=== PATIENT | male | born 1980 | race Hispanic/Latino ===

== ENCOUNTER 2018-12-20 11:12 | Emergency (ER) | payer SELFPAY ==
[2018-12-20 11:37] VITALS: BP 142/89
--- NOTE | 2018-12-20 11:40 | Emergency Department Report ---
Chief Complaint: Extremity Problem,Nontraumatic Stated Complaint: LEFT ARM PAIN Time Seen by Provider: 12/20/18 11:35 - HPI History of Present Illness: This is a 38 y.o. male that presents with pain and redness to left anterior forearm. He accidentally scraped his arm with a piece of wood last week. - ROS Review of Systems: Bruising and pain to anterior left forearm. - Exam Vital Signs: Vital Signs 12/20/18 11:35 Temperature 98.2 F Pulse Rate 86 Respiratory 18 Rate Blood Pressure 142/89 O2 Sat by Pulse 99 Oximetry MSE screening note: Focused history and physical exam performed. Due to findings the following was ordered: XR forearm ACC for further evaluation. ED Disposition for MSE Condition: Stable
--- NOTE | 2018-12-20 12:21 | XRay Report ---
LEFT FOREARM: History: Swelling, pain AP and lateral views of the forearm demonstrate normal mineralization and contours for this patient's age. No destructive changes are noted and the adjacent soft tissues are normal. IMPRESSION: Normal left forearm.
--- NOTE | 2018-12-20 14:00 | Emergency Department Report ---
ED Extremity Problem HPI - General Chief complaint: Extremity Problem,Nontraumatic Stated complaint: LEFT ARM PAIN Time Seen by Provider: 12/20/18 11:35 Source: patient Mode of arrival: Ambulatory Limitations: No Limitations - History of Present Illness Initial comments: This is a 38-year-old old female who presents to ED complaining of left upper arm redness for the past 3 days. Patient states that he was working with some wood that he thinks with accidentally scratched the side of his arm. Patient states days later he noticed some redness and swelling since the left upper arm. He denies fever assess chills shortness of breath. Patient states that he had a tetanus booster 2 years ago -: Gradual Location: left, upper extremity History of Same: No Radiation: none Severity scale (0 -10): 7 - Related Data Previous Rx's Medication Instructions Recorded Last Taken Type Cephalexin [Keflex] 500 mg PO BID #10 capsule 12/20/18 Unknown Rx Clindamycin [Clindamycin CAP] 300 mg PO BID #14 cap 12/20/18 Unknown Rx Ibuprofen [Motrin] 800 mg PO Q8HR #30 tablet 12/20/18 Unknown Rx Allergies Allergy/AdvReac Type Severity Reaction Status Date / Time No Known Allergies Allergy Unverified 12/20/18 11:13 ED Review of Systems ROS: Stated complaint: LEFT ARM PAIN Other details as noted in HPI Comment: All other systems reviewed and negative ED Past Medical Hx - Past Medical History Previous Medical History?: Yes - Surgical History Past Surgical History?: No - Social History Smoking Status: Current Every Day Smoker Substance Use Type: None - Medications Home Medications: Home Medications Medication Instructions Recorded Confirmed Last Taken Type Cephalexin [Keflex] 500 mg PO BID #10 capsule 12/20/18 Unknown Rx Clindamycin [Clindamycin CAP] 300 mg PO BID #14 cap 12/20/18 Unknown Rx Ibuprofen [Motrin] 800 mg PO Q8HR #30 tablet 12/20/18 Unknown Rx ED Physical Exam - General Limitations: No Limitations General appearance: alert, in no apparent distress - Head Head exam: Present: atraumatic, normocephalic - Eye Eye exam: Present: normal appearance - ENT ENT exam: Present: mucous membranes moist - Neck Neck exam: Present: normal inspection - Respiratory Respiratory exam: Present: normal lung sounds bilaterally. Absent: respiratory distress - Cardiovascular Cardiovascular Exam: Present: regular rate, normal rhythm. Absent: systolic murmur, diastolic murmur, rubs, gallop - GI/Abdominal GI/Abdominal exam: Present: soft, normal bowel sounds - Rectal Rectal exam: Present: deferred - Extremities Exam Extremities exam: Present: normal inspection, full ROM, normal capillary refill - Expanded Upper Extremity Exam Left Shoulder Exam: Present: normal inspection, full ROM. Absent: tenderness, swelling Upper Arm exam: Present: normal inspection, full ROM, erythema (to medial aspect of arm, 6-7 cm in diameter). Absent: tenderness, swelling, dislocation Elbow exam: Present: normal inspection, full ROM. Absent: tenderness, swelling Forearm Wrist exam: Present: normal inspection, full ROM. Absent: tenderness Hand Wrist exam: Present: normal inspection, full ROM. Absent: tenderness, swelling - Back Exam Back exam: Present: normal inspection - Neurological Exam Neurological exam: Present: alert, oriented X3 - Psychiatric Psychiatric exam: Present: normal affect, normal mood - Skin Skin exam: Present: warm, dry, intact, normal color. Absent: rash ED Course Vital Signs 12/20/18 11:35 Temperature 98.2 F Pulse Rate 86 Respiratory 18 Rate Blood Pressure 142/89 O2 Sat by Pulse 99 Oximetry ED Medical Decision Making - Medical Decision Making 38-year-old male presents to be saline and is most likely from infection of the wood abrasion puncture wound. Patient received clindamycin ED Discussed antibiotic therapy next week. Discussed follow-up with primary care physician in 3-5 days. Vital signs are normal patient is in no acute distress Critical care attestation.: If time is entered above; I have spent that time in minutes in the direct care of this critically ill patient, excluding procedure time. ED Disposition Clinical Impression: Cellulitis of arm, left Disposition: DC-01 TO HOME OR SELFCARE Is pt being admited?: No Does the pt Need Aspirin: No Condition: Stable Instructions: Cellulitis (ED) Additional Instructions: Make sure to follow up with the primary care physician as discussed. Take all your medications as you've been prescribed. If you have any worsening symptoms or develop new symptoms please return to ED immediately. Prescriptions: Clindamycin [Clindamycin CAP] 300 mg PO BID #14 cap Cephalexin [Keflex] 500 mg PO BID #10 capsule Ibuprofen [Motrin] 800 mg PO Q8HR #30 tablet Referrals: CORTEZ WONGHALE MD TREY [Primary Care Provider] - 3-5 Days [facility] [Outside] - 3-5 Days Forms: Work/School Release Form(ED), Accompanied Note Time of Disposition: 14:35
[2018-12-20] MEDS ORDERED: CLEOCIN IM ONE (14:02)
== END 2018-12-20 14:45 | disposition home or self-care (01) ==
LOC: ED 11:12
DX: L03.114 Cellulitis of left upper limb (principal); F17.200 Nicotine dependence, unspecified, uncomplicated
CPT/HCPCS: 96372; 99283

== ENCOUNTER 2020-02-23 04:00 | Emergency (ER) | payer SELFPAY ==
[2020-02-23 04:22] VITALS: BP 125/78
--- NOTE | 2020-02-23 04:25 | Emergency Department Report ---
ED Seizure HPI - General Chief Complaint: Seizure Stated Complaint: SEIZURE Time Seen by Provider: 02/23/20 04:19 Source: patient, police, EMS Mode of arrival: Stretcher Limitations: No Limitations - History of Present Illness Initial Comments: Patient is 39 years old male with history of seizure on Vimpat. Patient brought to the emergency room by mounted police officer. Officer stated that patient started having seizures after has been arrested this morning. Patient is alert, oriented x3 no acute distress. Patient stated that he does not have his medic ation with him but last time he took his medicine was yesterday morning. Patient denied any injury. No fever, chills, neck pain, weakness numbness or tingling sensation. MD Complaint: seizure -: Sudden Description of Episode: loss of consciousness, tonic-clonic movement Witnessed:: Yes Trauma: No Seizure History: known seizure disorder Treatments Prior to Arrival: none - Related Data Previous Rx's Medication Instructions Recorded Last Taken Type Cephalexin [Keflex] 500 mg PO BID #10 capsule 12/20/18 Unknown Rx Clindamycin [Clindamycin CAP] 300 mg PO BID #14 cap 12/20/18 Unknown Rx Ibuprofen [Motrin] 800 mg PO Q8HR #30 tablet 12/20/18 Unknown Rx Lacosamide [Vimpat] 150 mg PO BID #60 tablet 02/23/20 Unknown Rx Allergies Allergy/AdvReac Type Severity Reaction Status Date / Time No Known Allergies Allergy Unverified 12/20/18 11:13 ED Review of Systems ROS: Stated complaint: SEIZURE Other details as noted in HPI Comment: All other systems reviewed and negative Constitutional: denies: chills, fever Respiratory: denies: cough, shortness of breath Cardiovascular: denies: chest pain Gastrointestinal: denies: abdominal pain ED Past Medical Hx - Social History Smoking Status: Current Every Day Smoker Substance Use Type: Alcohol - Medications Home Medications: Home Medications Medication Instructions Recorded Confirmed Last Taken Type Cephalexin [Keflex] 500 mg PO BID #10 capsule 12/20/18 Unknown Rx Clindamycin [Clindamycin CAP] 300 mg PO BID #14 cap 12/20/18 Unknown Rx Ibuprofen [Motrin] 800 mg PO Q8HR #30 tablet 12/20/18 Unknown Rx Lacosamide [Vimpat] 150 mg PO BID #60 tablet 02/23/20 Unknown Rx ED Physical Exam - General Limitations: No Limitations General appearance: alert, in no apparent distress - Head Head exam: Present: atraumatic, normocephalic, normal inspection - Eye Eye exam: Present: normal appearance - ENT ENT exam: Present: normal exam, normal orophraynx, mucous membranes moist - Neck Neck exam: Present: normal inspection, full ROM. Absent: tenderness, meningismus - Respiratory Respiratory exam: Present: normal lung sounds bilaterally - Cardiovascular Cardiovascular Exam: Present: regular rate, normal rhythm, normal heart sounds - GI/Abdominal GI/Abdominal exam: Present: soft, normal bowel sounds. Absent: distended, tenderness, guarding, rebound, rigid, organomegaly, mass, bruit, pulsatile mass, hernia - Extremities Exam Extremities exam: Present: normal inspection, full ROM, normal capillary refill - Back Exam Back exam: Present: normal inspection, full ROM. Absent: CVA tenderness (R), CVA tenderness (L) - Neurological Exam Neurological exam: Present: alert, oriented X3, CN II-XII intact - Psychiatric Psychiatric exam: Present: normal mood - Skin Skin exam: Present: warm, intact, normal color ED Course Vital Signs 02/23/20 04:16 Temperature 97.9 F Pulse Rate 106 H Respiratory 16 Rate Blood Pressure 125/78 O2 Sat by Pulse 97 Oximetry ED Medical Decision Making - Lab Data Result diagrams: 02/23/20 04:29 02/23/20 04:29 - Medical Decision Making Patient is 39 years old male with history of seizure on Vimpat. Patient brought to the emergency room by mounted police officer. Officer stated that patient started having seizures after has been arrested this morning. Patient is alert, oriented x3 no acute distress. Patient stated that he does not have his medication with him but last time he took his medicine was yesterday morning. Patient denied any injury. No fever, chills, neck pain, weakness numbness or tingling sensation. Patient received Vimpat 200 mg IV x1. Labs reviewed and showed elevated white blood cells and this is most likely secondary to seizure. Patient with no clinical evidence of infection. Patient given a prescription for Vimpat and advised to follow-up with a neurologist in the next 2 to 3 days. Critical care attestation.: If time is entered above; I have spent that time in minutes in the direct care of this critically ill patient, excluding procedure time. ED Disposition Clinical Impression: Seizure Disposition: DC/[place]-[address]/LAW ENFORCEMENT Is pt being admited?: No Condition: Stable Instructions: Recurrent Seizures Adult (ED) Prescriptions: Lacosamide [Vimpat] 150 mg PO BID #60 tablet Referrals: PRIMARY CARE, [Primary Care Provider] - 3-5 Days
[2020-02-23] MEDS ORDERED: LACOSAMIDE 200 MG in SODIUM CHLORIDE 0.9% 100 ML IV ONE (04:45)
[2020-02-23 04:49] LABS: Basophils # (Auto) 0.1 K/mm3 (0.0-0.1); Basophils % (Auto) 0.4 % (0.0-1.8); Eosinophils # (Auto) 0.1 K/mm3 (0.0-0.4); Eosinophils % (Auto) 0.3 % (0.0-4.3); Hematocrit 46.4 % (35.5-45.6); Hemoglobin 16.2 gm/dl (11.8-15.2); Lymphocytes % (Auto) 10.6 % (13.4-35.0); Mean Corpuscular HGB Conc 35 % (32-34); Mean Corpuscular Volume 89 fl (84-94); Monocytes % (Auto) 5.5 % (0.0-7.3); Platelet Count 160 K/mm3 (140-440); Red Blood Count 5.24 M/mm3 (3.65-5.03); Red Cell Distribution Width 12.9 % (13.2-15.2)
[2020-02-23 05:05] LABS: BUN/Creatinine Ratio 20; Blood Urea Nitrogen 16 mg/dL (9-20); Calcium 9.8 mg/dL (8.4-10.2); Hemolysis Index 6
[2020-02-23 05:27] LABS: Bilirubin,Urine NEG (Negative); Blood,Urine SM (Negative); Color,Urine Yellow (Yellow); Mucus,Urine FEW /HPF; Protein,Urine <15 mg/dL mg/dL (Negative); Urobilinogen,Urine < 2.0 mg/dL (<2.0)
== END 2020-02-23 05:40 ==
LOC: ED 04:00
DX: R56.9 Unspecified convulsions (principal); F17.200 Nicotine dependence, unspecified, uncomplicated
CPT/HCPCS: 36415; 80048; 81001; 85025; 99283; C9254

== ENCOUNTER 2020-05-16 10:14 | Emergency (ER) | payer MEDICARE ==
[2020-05-16] MEDS ORDERED: SODIUM CHLORIDE 0.9% 1000 ML 1,000 ML IV ONE (10:55)
[2020-05-16] MEDS ORDERED: ONDANSETRON 4 MG/2 ML INJ IV ONE (10:55)
[2020-05-16] MEDS ORDERED: fentaNYL 100 MCG/2 ML INJ IV ONE ×3 (10:55→13:27)
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
[2020-05-16 11:27] LABS: Basophils % (Auto) 0.2 % (0.0-1.8); Eosinophils # (Auto) 0.1 K/mm3 (0.0-0.4); Eosinophils % (Auto) 0.6 % (0.0-4.3); Hematocrit 47.2 % (35.5-45.6); Hemoglobin 16.3 gm/dl (11.8-15.2); Lymphocytes # (Auto) 1.3 K/mm3 (1.2-5.4); Lymphocytes % (Auto) 8.1 % (13.4-35.0); Mean Corpuscular HGB Conc 35 % (32-34); Mean Corpuscular Volume 92 fl (84-94); Monocytes # (Auto) 1.1 K/mm3 (0.0-0.8); Monocytes % (Auto) 7.1 % (0.0-7.3); Platelet Count 138 K/mm3 (140-440); Red Blood Count 5.11 M/mm3 (3.65-5.03); Red Cell Distribution Width 14.1 % (13.2-15.2)
[2020-05-16 11:39] LABS: INR 1.09 (0.87-1.13)
[2020-05-16 11:40] LABS: Partial Thromboplastin Time 28.9 Sec. (24.2-36.6)
[2020-05-16 11:51] LABS: Creatine Kinase MB 4.8 ng/mL (0.0-4.0)
[2020-05-16 11:53] LABS: Alanine Aminotransferase 24 units/L (7-56); Albumin 4.6 g/dL (3.9-5); BUN/Creatinine Ratio 23; Blood Urea Nitrogen 16 mg/dL (9-20); Calcium 9.3 mg/dL (8.4-10.2); Hemolysis Index 15
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
[2020-05-16 15:35] VITALS: BP 114/64
== END 2020-05-16 15:20 | disposition home or self-care (01) ==
LOC: ED 10:14
DX: S16.1XXA Strain of muscle, fascia and tendon at neck level, initial encounter (principal); S39.012A Strain of muscle, fascia and tendon of lower back, initial encounter; S20.211A Contusion of right front wall of thorax, initial encounter; S30.810A Abrasion of lower back and pelvis, initial encounter; S40.212A Abrasion of left shoulder, initial encounter; S40.211A Abrasion of right shoulder, initial encounter; Z86.69 Personal history of other diseases of the nervous system and sense organs; Z79.899 Other long term (current) drug therapy; V43.52XA Car driver injured in collision with other type car in traffic accident, initial encounter; Y93.9 Activity, unspecified; Y92.488 Other paved roadways as the place of occurrence of the external cause; Y99.8 Other external cause status
CPT/HCPCS: 36415; 70450; 71275; 72072; 72100; 72125; 74177; 80053; 82550; 82553; 84484; 85025; 85610; 85730; 86850; 86900; 86901; 93005; 96361; 96374; 96375; 96376; 99284; J2405; J3010; J7030; Q9967